=== PATIENT | male | born 1975 | race Caucasian/White ===

== ENCOUNTER 2017-07-13 11:36 | Emergency (ER) | payer OTHER ==
[2017-07-13] MEDS ORDERED: FENTANYL CITRATE INJ/PF 100 MCG/2 ML AMPUL IV ONE (11:38)
[2017-07-13] MEDS ORDERED: CEFAZOLIN 1 GM/D5W RTU 1 GM/50 ML RTUPB IV ONE (11:38)
[2017-07-13] MEDS ORDERED: DIPH/PERTUSS(ACELL)/TETANUS VAC/PF 0.5 ML SYR (>=10YO) IM ONE (11:38)
[2017-07-13] MEDS ORDERED: LIDOCAINE 1% INJ-PF (10 MG/ML) 30 ML SDV INJ ONE (11:40)
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
[2017-07-13 14:27] VITALS: BP 150/82
== END 2017-07-13 14:27 | disposition home or self-care (01) ==
LOC: ER 11:36
PROC: 0HQ1XZZ Repair Face Skin, External Approach (ICD-10-PCS; principal; 2017-07-13)
PROC: 0HQ0XZZ Repair Scalp Skin, External Approach (ICD-10-PCS; 2017-07-13)
DX: S01.81XA Laceration without foreign body of other part of head, initial encounter (principal); S05.41XA Penetrating wound of orbit with or without foreign body, right eye, initial encounter; S06.0X0A Concussion without loss of consciousness, initial encounter; R51 Headache; Y08.09XA Assault by strike by other specified type of sport equipment, initial encounter; F17.210 Nicotine dependence, cigarettes, uncomplicated; I10 Essential (primary) hypertension; Z85.47 Personal history of malignant neoplasm of testis; I25.2 Old myocardial infarction
CPT/HCPCS: 99284; 90471; 96375; 96365; 70450; 70486; 90715; 12015; 12004; J0690; J3010; J3490

== ENCOUNTER 2017-07-19 11:35 | Emergency (ER) | payer OTHER ==
[2017-07-19 11:50] VITALS: BP 136/85
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
== END 2017-07-19 12:18 | disposition home or self-care (01) ==
LOC: ER 11:35
DX: Z48.02 Encounter for removal of sutures (principal)